=== PATIENT | male | born 1970 | race Hispanic/Latino ===

== ENCOUNTER → 2023-10-18 | Outpatient (CLI) | payer MEDICAID, OTHER, SELFPAY | LOC: M OUTALCOH 13:41 | PROVIDERS: ATTEND Psychiatry & Neurology Psychiatry | DX: F10.10 Alcohol abuse, uncomplicated (principal); F17.200 Nicotine dependence, unspecified, uncomplicated ==

== ENCOUNTER 2023-10-28 13:04 | Outpatient (RCR) | payer MEDICAID | END 2023-11-22 | LOC: M OUTALCOH 13:04 | PROVIDERS: ATTEND Psychiatry & Neurology Psychiatry | DX: F10.10 Alcohol abuse, uncomplicated (principal); F17.200 Nicotine dependence, unspecified, uncomplicated ==

== ENCOUNTER → 2024-07-03 | Outpatient (REF) | payer OTHER ==
[~2024-07-03] MED LIST: AMOX500C PO; BENZ200C70 PO; PRED20TA PO; VENTAER INH
[2024-07-05 13:52] LABS: PSA FREE 0.5 ng/mL; PSA TOTAL 6.3 ng/mL (< OR = 4.0)
== END ==
LOC: M LAB REF 13:42
PROVIDERS: ATTEND Nurse Practitioner Family
DX: R97.20 Elevated prostate specific antigen [PSA] (principal)

== ENCOUNTER → 2025-02-12 | Outpatient (REF) | payer OTHER ==
[2025-02-12 15:17] LABS: FREE T4 1.2 NG/DL (0.89-1.76); TOTAL T3 101.0 NG/DL (60.0-181.0)
== END ==
LOC: M LAB REF 14:10
PROVIDERS: ATTEND Nurse Practitioner Family
DX: E05.90 Thyrotoxicosis, unspecified without thyrotoxic crisis or storm (principal)